=== PATIENT | male | born 1950 | race Asian ===

== ENCOUNTER 2019-03-18 22:15 | Emergency (ER) | payer BC ==
--- NOTE | 2019-03-18 22:43 | PDOC ---
History of Present Illness - General Chief Complaint: Nausea/Vomiting Stated Complaint: HIGH BLOOD PRESSURE, VOMITING Time Seen by Provider: 03/18/19 22:43 History Source: Patient Exam Limitations: No Limitations - History of Present Illness Initial Comments: 03/18/19 22:43 Mulugeta David is a [place] 68M with PMH HTN, HLD, BPH presenting with nausea/ vomiting after eating instant noodles. Patient presents with and son at bedside. Says he made ate some instant noodles at around 7PM and began to have room-spinning dizziness, nausea, and vomiting without abdominal pain or diarrhea. gave losartan and metoprolol because she thought his blood pressure was high, did not improve symptoms. EMS called, SBP 170s, given Zofran which improved nausea, BIBA for further evaluation. PMH HTN, HLD, no other cardiac history, denies CT/CVA/CHF, no COPD, no DM. Denies sick contacts at home, previously healthy. Denies vision changes or tinnitus. Prior admission to [facility] 4 years ago for similar episode. Past History - Past Medical History Allergies/Adverse Reactions: Allergies Allergy/AdvReac Type Severity Reaction Status Date / Time rosuvastatin calcium Allergy Intermediate Verified 03/18/19 23:17 [From Crestor] tamsulosin AdvReac Intermediate Verified 03/18/19 23:17 tamsulosin HCl [From Flomax] AdvReac Intermediate Verified 03/18/19 23:17 Home Medications: Ambulatory Orders Aspirin [Aspir 81] 81 mg PO DAILY 09/28/12 Calcuim DAILY 09/28/12 Losartan/Hydrochlorothiazide [Losartan-Hctz 100-25 Mg Tab] 1 each PO DAILY tablet 09/28/12 Metoprolol Succinate 50 mg PO DAILY 09/28/12 Mvi DAILY 09/28/12 [place]-3 Fatty Acids [Fish Oil] 500 mg PO DAILY capsule 09/28/12 Aspirin [ASA -] 81 mg PO DAILY 11/02/12 Metoprolol Tartrate [Lopressor -] 50 mg PO DAILY 11/02/12 Losartan/Hydrochlorothiazide [Losartan-Hctz 100-25 mg Tab] 100 each PO DAILY Atorvastatin Calcium 10 mg PO DAILY tablet 09/07/14 Icosapent Ethyl [Vascepa] 1 gm PO DAILY capsule 09/07/14 Acetaminophen [Tylenol] 1 tab PO PRN PRN 09/19/14 Calcium 500 mg PO DAILY 09/19/14 Stock[place]-3 Fatty Acids [[place]-3] 500 mg PO DAILY 09/19/14 Multivitamin/Iron/Folic Acid [One Daily Multivitamin-Iron Tb] 1 tab PO DAILY Nash,Paracasei, B.lactis [Probiotic] 1 each PO DAILY 07/03/15 Anemia: No Asthma: No Cancer: No Cardiac Disorders: No CVA: No COPD: No CHF: No Dementia: No Diabetes: No GI Disorders: Yes (COLON POLYP, EROSIVE GASTRITIS) Disorders: Yes (PROSTATE DISEASE) HTN: Yes Hypercholesterolemia: Yes Liver Disease: Yes (NON ALCOHOLIC FATTY LIVER,LIVER CYST) Seizures: No Thyroid Disease: No - Surgical History Abdominal Surgery: No Appendectomy: No Cardiac Surgery: No Cholecystectomy: No Lung Surgery: No Neurologic Surgery: No Orthopedic Surgery: No - Psycho Social/Smoking Cessation Hx Smoking History: Never smoked Have you smoked in the past 12 months: No Hx Alcohol Use: No Drug/Substance Use Hx: No Substance Use Type: None Hx Substance Use Treatment: No Review of Systems - Review of Systems Able to Perform ROS?: Yes Constitutional: No: Chills, Fever HEENTM: No: Recent change in vision Respiratory: No: Cough, Shortness of Breath Cardiac (ROS): No: Chest Pain, Edema, Irregular Heart Rate, Lightheadedness, Palpitations, Syncope ABD/GI: Yes: Nausea, Vomiting. No: Constipated, Diarrhea, Poor Appetite, Poor Fluid Intake : No: Symptoms Reported Musculoskeletal: No: Symptoms Reported Integumentary: No: Symptoms Reported Neurological: Yes: Dizziness. No: Headache, Numbness, Unsteady Gait Endocrine: No: Symptoms Reported Hematologic/Lymphatic: No: Symptoms Reported All Other Systems: Reviewed and Negative *Physical Exam - Physical Exam General Appearance: Yes: Nourished, Appropriately Dressed, Moderate Distress, Other (resting in bed, eyes closed, periodically sits up to vomit) HEENT: positive: EOMI, SHAWN, Normal ENT Inspection, Normal Voice, Symmetrical, Pharynx Normal, Hearing Grossly Normal, Other (evident horizontal nystagmus). negative: Scleral Icterus (R), Scleral Icterus (L), Muffled/Hoarse voice, Rhinorrhea Neck: positive: Supple. negative: Tender, Lymphadenopathy (R), Lymphadenopathy (L) Respiratory/Chest: positive: Lungs Clear, Normal Breath Sounds. negative: Chest Tender, Respiratory Distress, Accessory Muscle Use, Crackles, Rales, Rhonchi, Stridor, Wheezing Cardiovascular: positive: Regular Rhythm, Regular Rate. negative: Murmur Gastrointestinal/Abdominal: positive: Normal Bowel Sounds, Flat, Soft. negative : Tender, Guarding, Rebound Musculoskeletal: positive: Normal Inspection. negative: Vertebral Tenderness Extremity: positive: Normal Capillary Refill, Normal Inspection, Normal Range of Motion, Pelvis Stable. negative: Tender, Pedal Edema, Swelling Integumentary: positive: Normal Color, Warm, Diaphoresis Neurologic: positive: zipper measurer II-XII NML intact, Fully Oriented, Alert, Normal Mood/ Affect, Normal Response, Motor Strength 5/5, Other (HINTS: head impulse with saccades, horizontal nystagmus, no skew.). negative: Sensory Deficit ED Treatment Course - LABORATORY CBC & Chemistry Diagram: 03/18/19 23:15 03/18/19 23:15 Medical Decision Making - Medical Decision Making 03/18/19 23:13 Patient presents with sudden onset nausea/vomiting/vertigo in the setting of eating instant noodles at home, found to be hypertensive, given metoprolol, losartan, and Zofran so far, history of HTN/HLD without CT/CVA, one prior episode in the past. Ddx most concerning for hypertensive emergency, ACS/arrhythmia, posterior CVA, pancreatitis, GB pathology, dehydration, gastroenteritis. BP has dropped at this time to 158/79, less concerned about HTN at this time. No abdominal pain at all, but has a normal neuro exam with horizontal nystagmus and HINTS Exam inconsistent with central vertigo. Evaluating for gastro vs. neuro vs. cardiac causes of dizziness. - CMP/CBC/Mg/Phos for eval lytes/infection - lipase for eval pancreatitis - CP/CXR/ECG for cardiac eval - 1L NS, 25mg meclizine for dizziness, 20mg Pepcid for nausea, already given Zofran - CT head for CVA evaluation - re-assess if symptoms improve after meclizine 03/18/19 23:37 Labs notable for: - WBC 17.8 - Coags WNL 03/18/19 23:47 ECG shows NSR with RBBB HR 68 , QRS 162, QTc 484, no other TWI or ischemic changes, consistent with prior ECG 2013 CXR unremarkable compared to prior, no acute cardiac or pulmonary pathology noted on prelim read 03/19/19 00:18 Signed out to night team Dr. Urbina, plan for CT read and labs and re-eval for dizziness. May require neuro consult and admit for AM MRI/MRA non-con of brain and neck. Discharge - Discharge Information Problems reviewed: Yes Clinical Impression/Diagnosis: Vertigo Nausea & vomiting Qualifiers: Vomiting type: unspecified Vomiting Intractability: non-intractable Qualified Code(s): R11.2 - Nausea with vomiting, unspecified Condition: Stable - Follow up/Referral - Patient Discharge Instructions - Post Discharge Activity
[2019-03-18 22:45] VITALS: TEMP 98.4; BMI 24.9
[2019-03-18] MEDS ORDERED: SODIUM CHLORIDE 0.9% 500 ML INFUS.BAG IV ONE (23:04)
[2019-03-18] MEDS ORDERED: FAMOTIDINE 20 MG/50 ML IVPB 20 MG/50 ML MG IVPB ONE ×2 (23:04→23:18)
[2019-03-18] MEDS ORDERED: MECLIZINE HCL 25 MG TABLET (FP) PO ONE (23:05)
[2019-03-18] MEDS ORDERED: MECLIZINE HCL 25 MG TABLET (FP) ONE (23:18)
[2019-03-18 23:31] LABS: BASO % 0.5 % (0-2.0); EOS % 0.4 % (0-4.5); HEMOGLOBIN 13.8 GM/dL (11.7-16.9); MCH 28.1 pg (25.7-33.7); MCHC 33.7 g/dl (32.0-35.9); MEAN CELL VOLUME 83.3 fl (80-96); MEAN PLT VOLUME 6.9 fl (7.5-11.1); MONO % 3.6 % (3.8-10.2); NEUT % 84.5 % (42.8-82.8); PLATELET COUNT 207 K/MM3 (134-434); RBC 4.92 M/mm3 (4.00-5.60); RDW 14.2 % (11.9-15.9); WHITE BLOOD COUNT 17.8 K/mm3 (4.0-10.0)
[2019-03-18 23:40] LABS: INR 0.94 (0.83-1.09); PROTHROMBIN TIME (PATIENT) 11.1 SEC (9.7-13.0)
[2019-03-18 23:42] LABS: ACTIVATED PTT 26.9 SECONDS (25.2-36.5)
--- NOTE | 2019-03-19 00:13 | PDOC ---
*Physical Exam - Vital Signs Last Vital Signs Temp Pulse Resp BP Pulse Ox 98.4 F 68 18 158/79 96 03/18/19 22:30 03/18/19 22:30 03/18/19 22:30 03/18/19 22:30 03/18/19 22:30 ED Treatment Course - LABORATORY CBC & Chemistry Diagram: 03/18/19 23:15 03/18/19 23:15 - ADDITIONAL ORDERS Additional order review: Laboratory Results 03/18/19 23:15 PT with INR 11.10 INR 0.94 PTT (Actin FS) 26.9 03/18/19 23:15 RBC 4.92 MCV 83.3 MCHC 33.7 RDW 14.2 MPV 6.9 L Neutrophils % 84.5 H D Lymphocytes % 11.0 D Monocytes % 3.6 L Eosinophils % 0.4 Basophils % 0.5 - Medications Given in the ED: ED Medications Discontinued Medications Generic Name Dose Route Start Last Admin Trade Name Freq PRN Reason Stop Dose Admin Famotidine/Sodium Chloride 20 mg in 50 mls @ 100 mls/hr 03/18/19 23:04 23:29 Pepcid 20 Mg Premixed Ivpb - IVPB 03/18/19 23:33 100 mls/hr ONCE ONE Administration Meclizine HCl 25 mg 03/18/19 23:05 03/18/19 23:29 Antivert - PO 03/18/19 23:06 25 mg ONCE ONE Administration Sodium Chloride 1,000 ml 03/18/19 23:04 03/18/19 23:29 Normal Saline - IV 03/18/19 23:05 1,000 ml ONCE ONE Administration Medical Decision Making - Medical Decision Making 03/19/19 00:11 dizziness, nausea,vomiting blood pressure was elevated brought in by EMS concern for posterior CVA pending Labs head ct read revaluate for dizziness if persists; admit for further work up MRI may have to consult neurology 03/19/19 01:[address] No evidence of hemorrhage, acute territorial infarction, mass effect, midline shift, hydrocephalus, or extra-axial collections. Age appropriate involutional changes Vascular calcifications of the cavernous carotid arteries and left distal vertebral artery No hyperdense arterial or venous sign Mild chronic left maxillary and bilateral ethmoid sinus disease Leftward deviation of the nasal septum The calvarium is intact IMPRESSION: 1. No acute intracranial process on reassesment pt no longer dizzy however elevated count to 17.8 assess for possible infectious cause. pt given 40 meq K+ for hypokalemia of 3.2 03/19/19 02:50 UA wnl 03/19/19 03:19 mildly elevated lactic acid 2.4 pt was hyrated with 1.25L NS willing to be discharged with neurology follow up . 03/19/19 03:27 Discharge - Discharge Information Problems reviewed: Yes Clinical Impression/Diagnosis: Vertigo Nausea & vomiting Qualifiers: Vomiting type: unspecified Vomiting Intractability: non-intractable Qualified Code(s): R11.2 - Nausea with vomiting, unspecified Condition: Stable Disposition: HOME - Follow up/Referral Referrals: Amadeo Washburn MD, MD [Primary Care Provider] - Madhu Mahajan MD [Staff Physician] - Tanner Evans MD [Staff Physician] - - Patient Discharge Instructions Patient Printed Discharge Instructions: DI for Vertigo Additional Instructions: You were seen in the ER for vertigo Your care is not complete until you follow up with a neurologist and your primary care provider for further evaluation. RETURN TO THE ER -if you develop worsening symptoms - persistent fevers, chills, nausea, vomiting - Post Discharge Activity
--- NOTE | 2019-03-19 00:17 | PDOC ---
Documentation entered by Nadya Littlejohn SCRIBE, acting as scribe for Manda Bassett MD. Manda Bassett MD: This documentation has been prepared by the kimibizzy, Nadya Littlejohn SCRIBE, under my direction and personally reviewed by me in its entirety. I confirm that the documentation accurately reflects all work, treatment, procedures, and medical decision making performed by me. Attending Attestation - Resident Resident Name: [email or web address] - ED Attending Attestation I have performed the following: I have examined & evaluated the patient, The case was reviewed & discussed with the resident, I agree w/resident's findings & plan, Exceptions are as noted - HPI HPI: 03/18/19 23:22 The patient is a 68-year-old male with a past medical history significant for HTN, HLD, and BPH who presents to the emergency department nausea and vomiting. The patient had an onset of dizziness, nausea, and vomiting around 7:00 pm today after eating some instant noodles. The patient reports he took some blood pressure medication (Losartan and metoprolol) because they thought the symptoms were secondary to high blood pressure, without improvement. EMS was called, patient was given Zofran by EMS, with nausea improvement. - Physicial Exam PE: 03/18/19 23:46 GENERAL: The patient is in no acute distress, pt appears uncomfortable as he is sitting in bed with his eyes closed. ENT: Ears normal, nares patent, oropharynx clear without exudates. Moist mucous membranes. NECK: Normal range of motion, supple LUNGS: Breath sounds equal, clear to auscultation bilaterally. No wheezes, and no crackles. HEART:Regular rate and rhythm, normal S1 and S2 without murmur, rub or gallop. ABDOMEN: Soft, nontender, normoactive bowel sounds. EXTREMITIES: Normal range of motion, no edema. NEUROLOGICAL: Cranial nerves II through XII grossly intact. Normal speech. No focal neurological deficits. Strength 5/5 in all extremities Sensation in tact No dysmetria No dysdiadokinesis Did not walk this patient as he is vertiginous now SKIN: Warm, Dry, normal turgor, no rashes or lesions noted. - Medical Decision Making 03/18/19 23:46 68 uo M with a h/o HTN, HLD who presents to the ER with a complaint of vertigo Patient has had the symptoms in the past however he has not had them since he was last seen in the emergency department Symptoms began this evening at approximately 8 PM after eating his dinner ( noodles) No associated chest pain, shortness of breath, palpitation No focal weakness of any No slurred speech EKG: Normal sinus rhythm, rate of 68 bpm [place] normal intervals abnormal- pr:10ms , QRS:162ms, QTc:484ms, no st elevaiton or depression RBBB 03/18/19 23:48 03/18/19 23:54 03/19/19 00:16 Laboratory Tests 03/18/19 03/18/19 23:15 23:15 WBC 17.8 H Hgb 13.8 Hct 41.0 Plt Count 207 Neutrophils % 84.5 H D INR 0.94 03/19/19 00:21 CT: Patient Name: MAG JARRETT THIS IS A PRELIMINARY REPORT FROM [facility] DATE OF SERVICE: 2019-03-18 23:58:35 IMAGES: 243 EXAM: HEAD CT WITHOUT CONTRAST HISTORY: Status post fall COMPARISON: None. FINDINGS: No evidence of hemorrhage, acute territorial infarction, mass effect, midline shift, hydrocephalus, or extra-axial collections. Age appropriate involutional changes Vascular calcifications of the cavernous carotid arteries and left distal vertebral artery No hyperdense arterial or venous sign Mild chronic left maxillary and bilateral ethmoid sinus disease Leftward deviation of the nasal septum The calvarium is intact IMPRESSION: 1. No acute intracranial process 03/19/19 00:39 upon re assessment, pt is resting Has not complained to family about vertigo 03/22/19 18:14 Leukocytosis noted Pt has no findings on CXR or on UA No abd pain Pt no longer has any symptoms of vertigo He is ambulatory with a steady gait, no ataxia Finger to nose nml Rapid alternating movements nml I have offered this patient to stay in the hospital (CT shows calcifications, Pt may benefit from MRI) Pt refusing to stay in the hospital at this time Will d/c home Pt asked to follow up with PMD in 2 days Follow up with Neuro within 1 week pt given copies of all results I have reviewed with patient, and son my concerns that he needs further imaging Clinical impression: Vertigo, initial presentation
[2019-03-19 00:49] LABS: ALBUMIN 3.8 g/dl (3.4-5.0); BILIRUBIN,TOTAL 0.8 mg/dL (0.2-1); BLOOD UREA NITROGEN 18.6 mg/dL (7-18); CALCIUM 8.9 mg/dL (8.5-10.1); CREATININE 1.3 mg/dL (0.55-1.3); MAGNESIUM 2.2 mg/dL (1.8-2.4); PHOSPHOROUS 2.6 mg/dL (2.5-4.9); POTASSIUM 3.2 mmol/L (3.5-5.1); TOT PROT 7.4 g/dl (6.4-8.2)
[2019-03-19] MEDS ORDERED: SODIUM CHLORIDE 0.9% 500 ML INFUS.BAG IV ONE (01:33)
[2019-03-19] MEDS ORDERED: POTASSIUM CHLORIDE TABS 20 MEQ TABLET.ER (FP) PO ONE ×2 (01:46→01:48)
[2019-03-19 02:20] LABS: PH,URINE 7.5 (5.0-8.0); URINE APPEARANCE Clear; URINE BILIRUBIN Negative (NEGATIVE); URINE COLOR Yellow; URINE GLUCOSE (UA) Negative (NEGATIVE); URINE KETONE Negative (NEGATIVE); URINE LEUK ESTERASE Negative (NEGATIVE); URINE NITRITE Negative (NEGATIVE); URINE PROTEIN Negative (NEGATIVE); URINE UROBILINOGEN 0.2 mg/dL (0.2-1.0)
[2019-03-19 03:40] VITALS: BP 139/83; PULSE 65
--- NOTE | 2019-03-19 12:24 | EKG ---
Test Reason : Blood Pressure : / mmHG Vent. Rate : 068 BPM Atrial Rate : 068 BPM P-R Int : 180 ms QRS Dur : 162 ms QT Int : 456 ms P-R-T Axes : 046 -23 016 degrees QTc Int : 484 ms NORMAL SINUS RHYTHM RIGHT BUNDLE BRANCH BLOCK MINIMAL VOLTAGE CRITERIA FOR LVH, MAY BE NORMAL VARIANT ABNORMAL ECG WHEN COMPARED WITH ECG OF 17-JUN-2013 21:28, NO SIGNIFICANT CHANGE WAS FOUND Confirmed by ESSENCE ALLISON MD ([id number]) on 03/19/2019 12:24:19 PM Referred By: Confirmed By:ESSENCE ALLISON MD
== END 2019-03-19 03:35 | disposition home or self-care (01) ==
LOC: JER 22:15 → SUPCPDRO 22:15 → JER 03-19 03:35
PROC: 3E033GC Introduction of Other Therapeutic Substance into Peripheral Vein, Percutaneous Approach (ICD-10-PCS; principal; 2019-03-18)
DX: R42 Dizziness and giddiness (principal); R11.2 Nausea with vomiting, unspecified; E87.6 Hypokalemia; I10 Essential (primary) hypertension; E78.5 Hyperlipidemia, unspecified; N40.0 Benign prostatic hyperplasia without lower urinary tract symptoms; Z88.8 Allergy status to other drugs, medicaments and biological substances; Z87.19 Personal history of other diseases of the digestive system; Z79.82 Long term (current) use of aspirin
CPT/HCPCS: 36415; 70450-TC; 71045-TC-FY; 80053; 81003; 83605; 83690; 83735; 84100; 85025; 85610; 85730; 87086; 93005; 93010; 99283-25

== ENCOUNTER 2023-11-10 08:56 | Emergency (ER) | payer BC ==
[2023-11-10 09:03] VITALS: BMI 26.4
[2023-11-10] MEDS: SODIUM CHLORIDE 1,000 ML IV STA (10:19)
[2023-11-10] MEDS: ONDANSETRON 4 MG/2 ML VIAL IVPUSH ONE (10:19)
[2023-11-10] MEDS: FAMOTIDINE 20 MG/50 ML IVPB 20 MG/50 ML MG IVPB ONE (10:19)
[2023-11-10] MEDS ORDERED: ONDANSETRON 4 MG/2 ML VIAL ONE (10:31)
[2023-11-10] MEDS ORDERED: FAMOTIDINE 20 MG/50 ML IVPB 20 MG/50 ML MG IVPB ONE (10:31)
[2023-11-10 10:55] LABS: HEMOGLOBIN 12.4 GM/dL (11.7-16.9); MCH 27.5 pg (25.7-33.7); MCHC 32.5 g/dl (32.0-35.9); MEAN CELL VOLUME 84.5 fl (80-96); PLATELET COUNT 202 10^3/uL (134-434); RDW 14.6 % (11.9-15.9); WHITE BLOOD COUNT 15.2 K/mm3 (4.0-10.0)
[2023-11-10 11:13] LABS: POTASSIUM 3.2 mmol/L (3.5-5.1)
[2023-11-10 11:16] LABS: CALCIUM 9.7 mg/dL (8.5-10.1)
[2023-11-10 11:17] LABS: BLOOD UREA NITROGEN 23.6 mg/dL (7-18); MAGNESIUM 2.2 mg/dL (1.8-2.4)
[2023-11-10 11:20] LABS: CREATININE 1.4 mg/dL (0.55-1.3); PHOSPHOROUS 2.3 mg/dL (2.5-4.9)
[2023-11-10 11:21] LABS: TOT PROT 7.8 g/dl (6.4-8.2)
[2023-11-10 12:05] LABS: PLATELET ESTIMATE ADEQUATE
[2023-11-10] MEDS ORDERED: NAPH,MB-DB/K PH,MBDB POWDER PACKET ONE (12:07)
[2023-11-10] MEDS ORDERED: POTASSIUM CHLORIDE ORAL LIQUID 20 MEQ/15 ML ONE (12:08)
[2023-11-10] MEDS ORDERED: KCL 10 MEQ IVPB 10 MEQ/100 ML INFUS.BAG IVPB ONE (12:08)
[2023-11-10] MEDS: KCL 10 MEQ IVPB 10 MEQ/100 ML INFUS.BAG IVPB SCH (12:22)
[2023-11-10] MEDS: POTASSIUM CHLORIDE ORAL LIQUID 20 MEQ/15 ML PO ONE (12:22)
[2023-11-10] MEDS: NAPH,MB-DB/K PH,MBDB POWDER PACKET PO ONE (12:22)
[2023-11-10 14:09] VITALS: BP 108/68; PULSE 85; RESP 16; TEMP 98.5
== END 2023-11-10 16:00 | disposition home or self-care (01) ==
LOC: JER 08:56
PROC: 3E033GC Introduction of Other Therapeutic Substance into Peripheral Vein, Percutaneous Approach (ICD-10-PCS; principal; 2023-11-10)
PROC: 3E033GC Introduction of Other Therapeutic Substance into Peripheral Vein, Percutaneous Approach (ICD-10-PCS; 2023-11-10)
DX: E87.6 Hypokalemia (principal); R11.2 Nausea with vomiting, unspecified; R19.7 Diarrhea, unspecified; R50.9 Fever, unspecified; R53.1 Weakness; Z20.822 Contact with and (suspected) exposure to COVID-19
CPT/HCPCS: 0241U-QW; 36415; 74177-TC; 80053; 83690; 83735; 84100; 85025; 93005; 93010; 99285-25

== ENCOUNTER 2024-09-28 06:12 | Day surgery (SDC) | payer BC, MEDICARE ==
[2024-09-27 10:05] VITALS: BMI 25.1
[2024-09-28] MEDS ORDERED: PROPOFOL 20 ML ONE ×4 (07:23→08:05)
[2024-09-28] MEDS ORDERED: LIDOCAINE HCL/PF 2% SDV 5ML VIAL ONE (07:24)
[2024-09-28] MEDS ORDERED: BACITRACIN ZINC 15 GM TUBE TOPICAL OINTMENT ONE (07:29)
[2024-09-28] MEDS ORDERED: SUCCINYLCHOLINE CHLORIDE 200 MG/10 ML SYRINGE ONE (08:00)
[2024-09-28] MEDS ORDERED: ONDANSETRON 4 MG/2 ML VIAL ONE (08:08)
[2024-09-28] MEDS ORDERED: DEXAMETHASONE SOD PHOSPHATE 4 MG/1 ML VIAL ONE (08:08)
[2024-09-28] MEDS ORDERED: KETOROLAC TROMETHAMINE 30 MG/1 ML VIAL ONE (08:15)
[2024-09-28] MEDS ORDERED: ACETAMINOPHEN 1000 MG/100 ML BAG IVPB ONE (09:00)
[2024-09-28] MEDS: ACETAMINOPHEN 325 MG TABLET (FP) PO ONE (09:02)
[2024-09-28 10:19] VITALS: RESP 16; TEMP 96.6
[2024-09-28 13:31] VITALS: BP 126/91; PULSE 88
== END 2024-09-28 13:00 | disposition home or self-care (01) ==
LOC: FASU 06:12
PROVIDERS: ATTEND Urology
PROC: 0VB03ZX Excision of Prostate, Percutaneous Approach, Diagnostic (ICD-10-PCS; principal; 2024-09-28 08:16)
DX: N41.1 Chronic prostatitis (principal); R97.20 Elevated prostate specific antigen [PSA]
CPT/HCPCS: 88305-TC; 88341-TC; 88342-TC; 94760